=== PATIENT | female | born 1975 | race Asian ===

== ENCOUNTER 2017-10-21 16:31 | Inpatient (IN) | payer OTHER ==
[~2017-10-21] VITALS: Ht 152.4 cm; Wt 45.8 kg
[~2017-10-21 16:31] MED LIST: PRENTAB26 PO
--- NOTE | 2017-10-21 18:10 | EMERGENCY ROOM VISIT NOTE ---
History Report prepared by Jessi: Jhon Finch Under the Supervision of: Dr. Kennedy Chow M.D. First contact with patient: 17:55 Chief Complaint: FEVER Stated Complaint: PAIN IN THE BREAST SURGERY AREA, HAS FEVER History of Present Illness The patient is a 42 year old female with a past medical history of breast cancer and mastectomy who presents to the ED with a cc of constant right sided breast pain over the last few days accompanied with a fever that started today of 102 degrees. The patient notes that she had a mastectomy on October 10 at [place]. The patient also stated that she is not on medications for the cancer. Positive for erythema, cough, and headache. Negative for drainage from the incision site, dysuria, HTN, and DM. Source of History: patient Onset: Last few days Position: chest (right) Timing: constant Associated Symptoms: + fevers, + headache, + cough, No urinary symptoms Review of Systems See HPI for pertinent positives and negatives. A total of ten systems were reviewed and were otherwise negative. Family History Patient reports no known family medical history. Social History Smoking Status: Current Every Day Smoker Marital Status: Housing Status: lives with significant other Current/Historical Medications Scheduled PRN Diazepam (Diazepam), 5 MG PO Q6 PRN for PRN Oxycodone Ir (Roxicodone Ir), 5 MG PO Q4 PRN for Pain Allergies Coded Allergies: No Known Allergies (Verified , 10/21/17) Physical Exam Vital Signs Date Time Temp Pulse Resp B/P (MAP) Pulse Ox O2 Delivery O2 Flow Rate FiO2 10/21/17 21:31 98 16 89/57 97 Room Air 10/21/17 16:53 37.2 107 18 99/61 99 Room Air Physical Exam GENERAL: Awake, alert, well-appearing, NAD HENT: Normocephalic, atraumatic. EYES: Normal conjunctiva. Sclera non-icteric. PERRL. No anisocoria. NECK: Supple. No nuchal rigidity. FROM. RESPIRATORY: CTAB, no rhonchi, wheezing, crackles CARDIAC: Tachycardic, regular rhythm, no MRG ABDOMEN: Soft, NTND, BS+ MSK: No chest wall TTP, no LE edema NEURO: GCS 15, CN 2-12 intact, moves all 4s on command SKIN: No rash or jaundice noted. Two 8cm well healing incisions with sutures bilaterally across chest. No purulence or fluctuance, 4x4cm area of erythema and TTP, associated calor, no fluctuance. Recent drain site appears CDI Medical Decision & Procedures ER Provider Diagnostic Interpretation: Radiology results as stated below per my review and radiologist interpretation: CHEST ONE VIEW PORTABLE CLINICAL HISTORY: Fever, h/o breast reconstruction and mastectomy. COMPARISON STUDY: Chest radiograph September 06, 2011. FINDINGS: Lung volumes are mildly diminished. There is no pneumothorax or pleural effusion. There is no consolidation to suggest pneumonia. Cardiac size is normal. Mediastinal contours are normal. There is no evidence for pulmonary edema. IMPRESSION: 1. No acute cardiopulmonary findings. 2. Mildly diminished lung volumes. Electronically signed by: Jonathan Nieves M.D. 10/21/2017 7:00 PM Dictated Date/Time: 10/21/2017 6:59 PM RIGHT BREAST ULTRASOUND CLINICAL HISTORY: Recent post op breast recon R sided cellulitis, r/o abscess. COMPARISON STUDY: MRI of the breasts September 02, 2017. TECHNIQUE: Sonography of the right breast was performed. FINDINGS: A right breast implant is noted. There is diffuse edema within the right breast which is within normal limits in the early postoperative setting. In addition, note is made of an elongated 4.9 x 0.5 cm pocket of fluid within the right breast at the 7:00 position. This is nonspecific. IMPRESSION: 1. 4.9 x 0.5 cm elongated pocket of fluid within the right breast at the 7:00 position. Sterility cannot be assessed by ultrasound however the appearance is not strongly suggestive of an abscess. This may reflect a seroma, resolving hematoma or less likely abscess. 2. Right breast implant in place. Electronically signed by: Jonathan Nieves M.D. 10/21/2017 8:09 PM Dictated Date/Time: 10/21/2017 8:04 PM Laboratory Results Test 10/21/17 18:50 10/21/17 18:53 10/21/17 19:15 Venous Blood pH 7.38 (7.36-7.41) Venous Blood Partial Pressure CO2 46 mmHg (38.0-50.0) Venous Blood Partial Pressure O2 25 mmHg Venous Blood HCO3 27 mmol/L Venous Blood Oxygen Saturation < 60.0 % Venous Blood Base Excess 1.0 mEq/L Lactic Acid Level 1.6 mmol/L (0.4-2.0) Chemistry Specimen Hemolysis Urine Color YELLOW Urine Appearance CLEAR (CLEAR) Urine pH 7.0 (4.5-7.5) Urine Specific [place] 1.006 (1.000-1.030) Urine Protein NEG (NEG) Urine Glucose (UA) 1+ (NEG) Urine Ketones NEG (NEG) Urine Occult Blood 2+ (NEG) Urine Nitrite NEG (NEG) Urine Bilirubin NEG (NEG) Urine Urobilinogen NEG (NEG) Urine Leukocyte Esterase NEG (NEG) Urine WBC (Auto) /hpf (0-5) Urine RBC (Auto) /hpf (0-4) Urine Hyaline Casts (Auto) /lpf (0-5) Urine Epithelial Cells (Auto) /lpf (0-5) Urine Bacteria (Auto) (NEG) Urine RBC 5-10 /hpf (0-4) Urine WBC 0 /hpf (0-5) Urine Epithelial Cells 5-10 /lpf (0-5) Urine Bacteria NEG (NEG) Urine Test NEG (NEG) Laboratory results reviewed by me Medications Administered Medications (Trade) Dose Ordered Sig/Reinier Route Start Time Stop Time Status Last Admin Dose Admin Ampicillin Sodium/ Sulbactam Sodium 3000 mg/Sodium Chloride 108 ml @ 200 mls/hr ONE ONCE IV 10/21/17 18:15 10/21/17 18:47 DC 10/21/17 19:10 200 MLS/HR Sodium Chloride 1,000 ml @ 999 mls/hr Q1H1M STAT IV 10/21/17 18:15 10/21/17 19:15 DC 10/21/17 19:10 999 MLS/HR Ketorolac Tromethamine (Toradol Inj) 30 mg NOW STAT IV 10/21/17 18:15 10/21/17 18:20 DC 10/21/17 19:10 30 MG Acetaminophen (Tylenol Tab) 650 mg NOW STAT PO 10/21/17 18:15 10/21/17 18:20 DC 10/21/17 19:11 650 MG Vancomycin HCl 1000 mg/Sodium Chloride 270 ml @ 125 mls/hr NOW STAT IV 10/21/17 21:07 10/21/17 23:16 DC 10/21/17 21:30 125 MLS/HR Sodium Chloride 1,000 ml @ 999 mls/hr Q1H1M STAT IV 10/21/17 21:19 10/21/17 22:19 DC 10/21/17 21:39 999 MLS/HR Acetaminophen (Tylenol Tab) 650 mg Q4H PRN PO 10/21/17 21:45 11/20/17 21:44 10/22/17 12:28 650 MG ED Course 1807: The patient was evaluated in room B8. A complete history and physical exam was performed. 1916: I talked to Dr. Camilo Boone Resident about the patients condition. 2029: I talked to Dr. Pinon [facility] about the mastectomy. He said to put the patient on 24 hours of IV abx followed by oral abx. If the redness continues than to transfer her to [place]. 2039: I talked to Dr. Camilo Boone Resident about the patients condition and disposition. 2045: I spoke with the patient and updated her on the situation. Medical Decision Nursing notes reviewed. Ancillary studies and prior records reviewed. Differential diagnosis: Etiologies such as cellulitis, abscess, MRSA infection, DVT, necrotizing fasciitis, dermatitis, drug eruption, as well as others were entertained.. Patient was seen and evaluated the bedside. The patient is a has a known history of breast CA status post bilateral mastectomy and breast reconstruction. The patient is not receiving any oral or IV chemotherapy at this time. The patient recently had a postop check and did have what sounds to be a drain that was removed on Tuesday. The patient did have an associated fever with a T-max of 102 and associated redness over the right and central chest. No purulent drainage per patient were noted on exam. Patient did have blood work, blood and urine cultures, urinalysis, urine test, chest x-ray, and ultrasound of the right chest to rule out abscess or fluid collection. The patient was also given antipyretics and started on Unasyn. Patient did have an elevated white blood cell count of greater than 26,000. The patient did not have any fever while here. Patient had normal VBG and lactate. Patient's ultrasound did show a fluid collection but this was less likely to be abscess. I did speak with the on-call plastic surgeon at [facility] who stated that the patient would benefit from IV antibiotics but if the patient had any clinical deterioration, worsening, or expanding redness even with IV antibiotics that would accept her as a transfer. I believe this is suitable at this time. Upon reassessment of the patient patient is feeling improved. The patient's erythema was marked and dated with time and date with a skin marker. I did speak with the on-call hospitalist who agreed to further evaluate treat the patient. Did add vancomycin as coverage given the patient's recent intraoperative course. Patient was admitted to the medicine service. Medication Reconcilliation Current Medication List: was personally reviewed by me Blood Pressure Screening Patient's blood pressure: Low blood pressure Blood pressure disposition: Referred to PCP Consults Time Called: 1916 Consulting Physician: Dr. Camilo Boone Resident Returned Call: 1916 Discussed the patient's case with Dr. Camilo Boone Resident. The patient will be evaluated for further treatment and disposition. Additional Consults: Time Called: 2024 Consulted Physician: Dr. Pinon [facility] Returned Call: 2029 Additional Comments: Discussed the patient's case with Dr. Pinon [facility]. He said to put the patient on 24 hours of IV abx followed by oral abx. If the redness continues than to transfer her to [place]. Time Called: 2045 Consulted Physician: Dr. Camilo Boone Resident Returned Call: 2045 Additional Comments: Discussed the patient's case Dr. Camilo Sinclair. The patient will be evaluated for further treatment and disposition. Impression Primary Impression: Cellulitis of chest wall Additional Impressions: Anemia Fever Scribe Attestation The scribe's documentation has been prepared under my direction and personally reviewed by me in its entirety. I confirm that the note above accurately reflects all work, treatment, procedures, and medical decision making performed by me. Departure Information Dispostion Being Evaluated By Hospitalist Referrals Rangel Paul M.D. (PCP) Forms HOME CARE DOCUMENTATION FORM, IMPORTANT VISIT INFORMATION Patient Instructions My [facility] Health Problem Qualifiers Additional Impressions: Anemia Anemia type: unspecified type Qualified Codes: D64.9 - Anemia, unspecified Fever Fever type: unspecified Qualified Codes: R50.9 - Fever, unspecified
[2017-10-21] MEDS ORDERED: KETOROLAC TROMETHAMINE 30 MG/ML VIAL IV STA (18:15)
[2017-10-21] MEDS ORDERED: ACETAMINOPHEN 325 MG TAB PO STA (18:15)
[2017-10-21] MEDS ORDERED: AMPICILLIN/SULBACTAM SOD INJ 3,000 MG in SODIUM CHLORIDE 0.9% 100ML 100 ML IV ONE (18:15)
[2017-10-21] MEDS ORDERED: SODIUM CHLORIDE 0.9% 1000ML 1,000 ML IV STA ×2 (18:15→21:19)
[2017-10-21] MEDS ORDERED: OXYC-90 PO (18:24)
[2017-10-21] MEDS ORDERED: VLM5CL PO (18:24)
--- NOTE | 2017-10-21 19:01 | DIAGNOSTIC IMAGING REPORT ---
CHEST ONE VIEW PORTABLE CLINICAL HISTORY: Fever, h/o breast reconstruction and mastectomy. COMPARISON STUDY: Chest radiograph September 06, 2011. FINDINGS: Lung volumes are mildly diminished. There is no pneumothorax or pleural effusion. There is no consolidation to suggest pneumonia. Cardiac size is normal. Mediastinal contours are normal. There is no evidence for pulmonary edema. IMPRESSION: 1. No acute cardiopulmonary findings. 2. Mildly diminished lung volumes. Electronically signed by: Jonathan Nieves M.D. 10/21/2017 7:00 PM Dictated Date/Time: 10/21/2017 6:59 PM
[2017-10-21 19:08] LABS: HEMATOCRIT 30.7 % (37-47); HEMOGLOBIN 10.2 g/dL (12.0-16.0); MEAN CELL VOLUME 95.9 fL (80-100); MEAN CORPUSCULAR HEMOGLOBIN 31.9 pg (25-34); MEAN CORPUSCULAR HGB CONC 33.2 g/dl (32-36); PLATELET COUNT 345 K/uL (130-400); RED CELL DISTRIBUTION WIDTH CV 13.2 % (11.5-14.5); RED CELL DISTRIBUTION WIDTH SD 46.4 fL (36.4-46.3); WHITE BLOOD COUNT 25.64 K/uL (4.8-10.8)
[2017-10-21 19:31] LABS: BASO % 0.1 %; BASO ABS # 0.02 K/uL (0-0.2); EOS % 0.1 %; EOS ABS # 0.03 K/uL (0-0.5); IG# 0.15 K/uL (0.00-0.02); LYMPH % 4.1 %; LYMPH ABS # 1.04 K/uL (1.2-3.4); MONO % 4.3 %; MONO ABS # 1.11 K/uL (0.11-0.59); NEUT % 90.8 %; NEUT ABS # 23.29 K/uL (1.4-6.5)
[2017-10-21 19:32] LABS: CALCIUM 8.9 mg/dl (8.5-10.1); CREATININE 0.66 mg/dl (0.60-1.20); POTASSIUM 3.9 mmol/L (3.5-5.1)
--- NOTE | 2017-10-21 20:10 | DIAGNOSTIC IMAGING REPORT ---
RIGHT BREAST ULTRASOUND CLINICAL HISTORY: Recent post op breast recon R sided cellulitis, r/o abscess. COMPARISON STUDY: MRI of the breasts September 02, 2017. TECHNIQUE: Sonography of the right breast was performed. FINDINGS: A right breast implant is noted. There is diffuse edema within the right breast which is within normal limits in the early postoperative setting. In addition, note is made of an elongated 4.9 x 0.5 cm pocket of fluid within the right breast at the 7:00 position. This is nonspecific. IMPRESSION: 1. 4.9 x 0.5 cm elongated pocket of fluid within the right breast at the 7:00 position. Sterility cannot be assessed by ultrasound however the appearance is not strongly suggestive of an abscess. This may reflect a seroma, resolving hematoma or less likely abscess. 2. Right breast implant in place. Electronically signed by: Jonathan Nieves M.D. 10/21/2017 8:09 PM Dictated Date/Time: 10/21/2017 8:04 PM
[2017-10-21] MEDS ORDERED: VANCOMYCIN IV 1,000 MG in SODIUM CHLORIDE 0.9% 250ML 250 ML IV STA (21:07)
[2017-10-21] MEDS ORDERED: VANCOMYCIN CONSULT ACTIVE PRN ×2 (21:15→22:00)
--- NOTE | 2017-10-21 21:48 | History and Physical ---
History & Physical Date & Time of Service: Oct 21, 2017 at 21:48 Chief Complaint: Pain In The Breast Surgery Area, Has Fever Primary Care Physician: Rangel Paul M.D. History of Present Illness Source: patient, family, hospital records The patient is a 42-year-old female with a past medical history of breast cancer and recent mastectomy at [facility] on October 10, who presents to the emergency department with complaint of right sided breast pain worsening over the last few days with a fever that began today with a max of 102 F. She has not yet met with an oncologist to discuss chemotherapy. Past Medical/Surgical History Medical Problems: (1) Breast CA (2) LABOR (3) Vaginal bleeding during , antepartum Surgical Problems: (1) Hx of mastectomy Family History Patient reports no known family medical history. Social History Smoking Status: Current Every Day Smoker Smokeless Tobacco Use: No Alcohol Use: none Marital Status: Housing status: lives with family Immunizations History of Influenza Vaccine: No History of Tetanus Vaccine?: Unknown History of Pneumococcal: Unknown History of Hepatitis B Vaccine: Unknown Allergies Coded Allergies: No Known Allergies (Verified , 10/21/17) Home Medications Scheduled PRN Diazepam (Diazepam), 5 MG PO Q6 PRN for PRN Oxycodone Ir (Roxicodone Ir), 5 MG PO Q4 PRN for Pain Review of Systems The patient denies chest pain, palpitations, shortness of breath, dyspnea on exertion, cough, lower extremity swelling, sore throat, fevers, chills, sweats, weight change, nausea, vomiting, diarrhea, constipation, abdominal pain, pelvic pain, blood in urine or stool, dysuria, urinary frequency or urgency, lightheadedness , dizziness, headache, memory loss, loss of consciousness, abnormal bruising or bleeding, imbalance, focal or generalized weakness, numbness or tingling in arms or legs, generalized arthralgias or myalgias, back or neck pain, or night sweats. The review of systems is otherwise negative other than for that already noted above, and at least 10 systems have been reviewed. Physical Exam Vital Signs Date Time Temp Pulse Resp B/P (MAP) Pulse Ox O2 Delivery O2 Flow Rate FiO2 10/21/17 21:31 98 16 89/57 97 Room Air 10/21/17 16:53 37.2 107 18 99/61 99 Room Air The patient is awake, alert and oriented 3, well developed and well nourished, normocephalic and atraumatic, lying in bed and in no acute distress. HEENT--PERRL, EOMI, mucous membranes and oropharynx normal. Neck--supple. No JVD. No bruits. Thyroid normal, trachea midline, no adenopathy. Heart--normal S1 and S2. No murmurs, rubs or gallops. Lungs--clear bilaterally, no respiratory distress, no accessory muscle use. Abdomen--normal bowel sounds and soft. Nontender. Nondistended, no hernias or masses, no organomegaly. Extremities--no cyanosis or clubbing. No edema. There are good distal pulses b/ l. Dermatologic--mild erythema and warmth extending across the chest wall from right to toward left breast. Neurologic--cranial nerves II through XII grossly intact. Rheumatologic--normal range of motion. Psychiatric--normal affect. Diagnostics Laboratory Results Results Past 24 Hours Test 10/21/17 18:50 10/21/17 18:53 10/21/17 19:15 Range/Units Venous Blood pH 7.38 7.36-7.41 Venous Blood Partial Pressure CO2 46 38.0-50.0 mmHg Venous Blood Partial Pressure O2 25 mmHg Venous Blood HCO3 27 mmol/L Venous Blood Oxygen Saturation < 60.0 % Venous Blood Base Excess 1.0 mEq/L White Blood Count 25.64 4.8-10.8 K/uL Red Blood Count 3.20 4.2-5.4 M/uL Hemoglobin 10.2 12.0-16.0 g/dL Hematocrit 30.7 37-47 % Mean Corpuscular Volume 95.9 80-100 fL Mean Corpuscular Hemoglobin 31.9 25-34 pg Mean Corpuscular Hemoglobin Concent 33.2 32-36 g/dl Platelet Count 345 130-400 K/uL Mean Platelet Volume 9.0 7.4-10.4 fL Neutrophils (%) (Auto) 90.8 % Lymphocytes (%) (Auto) 4.1 % Monocytes (%) (Auto) 4.3 % Eosinophils (%) (Auto) 0.1 % Basophils (%) (Auto) 0.1 % Neutrophils # (Auto) 23.29 1.4-6.5 K/uL Lymphocytes # (Auto) 1.04 1.2-3.4 K/uL Monocytes # (Auto) 1.11 0.11-0.59 K/uL Eosinophils # (Auto) 0.03 0-0.5 K/uL Basophils # (Auto) 0.02 0-0.2 K/uL RDW Standard Deviation 46.4 36.4-46.3 fL RDW Coefficient of Variation 13.2 11.5-14.5 % Immature Granulocyte % (Auto) 0.6 % Immature Granulocyte # (Auto) 0.15 0.00-0.02 K/uL Sodium Level 134 136-145 mmol/L Potassium Level 3.9 3.5-5.1 mmol/L Chloride Level 103 98-107 mmol/L Carbon Dioxide Level 24 21-32 mmol/L Anion Gap 7.0 3-11 mmol/L Blood Urea Nitrogen 6 7-18 mg/dl Creatinine 0.66 0.60-1.20 mg/dl Est Creatinine Clear Calc Drug Dose 81.4 ml/min Estimated GFR () 128.1 Estimated GFR (Non- 110.5 BUN/Creatinine Ratio 8.9 10-20 Random Glucose 116 70-99 mg/dl Lactic Acid Level 1.6 0.4-2.0 mmol/L Calcium Level 8.9 8.5-10.1 mg/dl Chemistry Specimen Hemolysis Urine Color YELLOW Urine Appearance CLEAR CLEAR Urine pH 7.0 4.5-7.5 Urine Specific [place] 1.006 1.000-1.030 Urine Protein NEG NEG Urine Glucose (UA) 1+ NEG Urine Ketones NEG NEG Urine Occult Blood 2+ NEG Urine Nitrite NEG NEG Urine Bilirubin NEG NEG Urine Urobilinogen NEG NEG Urine Leukocyte Esterase NEG NEG Urine WBC (Auto) 0-5 /hpf Urine RBC (Auto) 0-4 /hpf Urine Hyaline Casts (Auto) 0-5 /lpf Urine Epithelial Cells (Auto) 0-5 /lpf Urine Bacteria (Auto) NEG Urine RBC 5-10 0-4 /hpf Urine WBC 0 0-5 /hpf Urine Epithelial Cells 5-10 0-5 /lpf Urine Bacteria NEG NEG Urine Test NEG NEG Microbiology Results 10/21/17 Blood Culture, Received Pending 10/21/17 Blood Culture, Received Pending Diagnostic Radiology Patient Name: VINCENT FRANCO Unit Number: [id number] Dictated: 10/21/172003 Transcribed: 10/21/172003 JA Printed Date/Time: [~ rep prt dt]/[~ rep prt tm] [~ rep ct labl] - [~ rep ct ivnm] [facility] [place] [address] Dictated: 10/21/172003 Transcribed: 10/21/172003 JA Printed Date/Time: [~ rep prt dt]/[~ rep prt tm] [~ rep ct labl] - [~ rep ct ivnm] [~ rep ct add3]] RIGHT BREAST ULTRASOUND CLINICAL HISTORY: Recent post op breast recon R sided cellulitis, r/o abscess. COMPARISON STUDY: MRI of the breasts September 02, 2017. TECHNIQUE: Sonography of the right breast was performed. FINDINGS: A right breast implant is noted. There is diffuse edema within the right breast which is within normal limits in the early postoperative setting. In addition, note is made of an elongated 4.9 x 0.5 cm pocket of fluid within the right breast at the 7:00 position. This is nonspecific. IMPRESSION: 1. 4.9 x 0.5 cm elongated pocket of fluid within the right breast at the 7:00 position. Sterility cannot be assessed by ultrasound however the appearance is not strongly suggestive of an abscess. This may reflect a seroma, resolving hematoma or less likely abscess. 2. Right breast implant in place. Electronically signed by: Jonathan Nieves M.D. 10/21/2017 8:09 PM Dictated Date/Time: 10/21/2017 8:04 PM The status of this report is Signed. Draft = Not yet reviewed or approved by Radiologist. Signed = Reviewed and approved by Radiologist. <AttendingPhy></AttendingPhy> <FamilyPhy>Rangel Paul M.D.</FamilyPhy> <PrimaryPhy >Rangel Paul M.D.</PrimaryPhy> <UnitNumber>[id number]</UnitNumber> <VisitNumber> [id number]</VisitNumber> <PatientName>VINCENT FRANCO</PatientName> <DateOfBirth></DateOfBirth> <Location>C.EDB</Location> <ServiceDate>08/10/18</ ServiceDate> <MNE>ESINDI</MNE> <OrderingPhy>Kennedy Chow M.D.</OrderingPhy> < OrderingPhyMNE>f rep ord dr archer</OrderingPhyMNE> <DictatingPhyMNE>f rep dict dr archer</DictatingPhyMNE> <CCListMNE>f rep ct mne</CCListMNE> <AdmittingPhyMNE>f pt admit dr archer</AdmittingPhyMNE> <AttendingPhyMNE>f pt attend dr archer</ AttendingPhyMNE> <ConsultingPhyMNE>f pt consult dr archer</ConsultingPhyMNE> <FamilyPhyMNE>f pt fam dr archer</FamilyPhyMNE> <OtherPhyMNE>f pt other dr archer</OtherPhyMNE> < PrimaryPhyMNE>f pt prim care dr archer</PrimaryPhyMNE> <ReferringPhyMNE>f pt referring dr archer</ReferringPhyMNE> Patient Name: VINCENT FRANCO Unit Number: [id number] Dictated: 10/21/171858 Transcribed: 10/21/171858 JA Printed Date/Time: [~ rep prt dt]/[~ rep prt tm] [~ rep ct labl] - [~ rep ct ivnm] [facility] Radiology Department [place] [id number] Dictated: 10/21/171858 Transcribed: 10/21/171858 JA Printed Date/Time: [~ rep prt dt]/[~ rep prt tm] [~ rep ct labl] - [~ rep ct ivnm] CHEST ONE VIEW PORTABLE CLINICAL HISTORY: Fever, h/o breast reconstruction and mastectomy. COMPARISON STUDY: Chest radiograph September 06, 2011. FINDINGS: Lung volumes are mildly diminished. There is no pneumothorax or pleural effusion. There is no consolidation to suggest pneumonia. Cardiac size is normal. Mediastinal contours are normal. There is no evidence for pulmonary edema. IMPRESSION: 1. No acute cardiopulmonary findings. 2. Mildly diminished lung volumes. Electronically signed by: Jonathan Nieves M.D. 10/21/2017 7:00 PM Dictated Date/Time: 10/21/2017 6:59 PM The status of this report is Signed. Draft = Not yet reviewed or approved by Radiologist. Signed = Reviewed and approved by Radiologist. <AttendingPhy></AttendingPhy> <FamilyPhy>Rangel Paul M.D.</FamilyPhy> <PrimaryPhy >Rangel Paul M.D.</PrimaryPhy> <UnitNumber>[id number]</UnitNumber> <VisitNumber> [id number]</VisitNumber> <PatientName>VINCENT FRANCO</PatientName> <DateOfBirth></DateOfBirth> <Location>C.EDB</Location> <ServiceDate>10/21/17</ ServiceDate> <MNE>ESINDI</MNE> <OrderingPhy>Kennedy Chow M.D.</OrderingPhy> < OrderingPhyMNE>f rep ord dr archer</OrderingPhyMNE> <DictatingPhyMNE>f rep dict dr archer</DictatingPhyMNE> <CCListMNE>f rep ct mne</CCListMNE> <AdmittingPhyMNE>f pt admit dr archer</AdmittingPhyMNE> <AttendingPhyMNE>f pt attend dr archer</ AttendingPhyMNE> <ConsultingPhyMNE>f pt consult dr archer</ConsultingPhyMNE> <FamilyPhyMNE>f pt fam dr archer</FamilyPhyMNE> <OtherPhyMNE>f pt other dr archer</OtherPhyMNE> < PrimaryPhyMNE>f pt prim care dr archer</PrimaryPhyMNE> <ReferringPhyMNE>f pt referring dr archer</ReferringPhyMNE> Impression Assessment and Plan Cellulitis of chest wall/status post mastectomy [facility] 10/10/17-- Dr. Chow from the emergency department discussed case with Dr. Workman, plastic surgeon at [place], who felt patient could be kept at this hospital for IV antibiotics. 4.9 x 0.5 cm elongated pocket of fluid within the right breast at 7 o'clock position, suggestive of seroma, resolving hematoma or less likely abscess. Place on vancomycin IV per pharmacokinetic monitoring and Zosyn IV. Follow external markings of advanced edge of cellulitis for clinical improvement. Keep in contact with plastic surgeon at [place], who is willing to accept the patient in transfer should she not respond to therapy. Breast cancer recent diagnosis-- Consult oncology, as she has not yet established with the service. Tobacco use disorder-- Counseling regarding cessation. Advanced Directives Existing Advance Directive: No Existing Living Will: No Existing Power of Typists Supervisor: No Resuscitation Status VTE Prophylaxis Will order VTE Prophylaxis: Yes Social Service Consult None Apply
[2017-10-21] MEDS ORDERED: ACETAMINOPHEN IV 100 ML IV PRN (22:00)
[2017-10-21] MEDS ORDERED: PIPERACILL/TAZOBAC CONSULT ACTIVE PRN (22:00)
[2017-10-21] MEDS ORDERED: ONDANSETRON INJ 2 MG/ML 2 ML VIAL IV PRN (22:00)
[2017-10-22] VITALS (9 sets, daily range): BP systolic 89–101; BP diastolic 58–69; PULSE 90–97; TEMP 36.7–37.7; O2SAT 95–100; Ht 152.4 cm; Wt 45.8 kg
[2017-10-22] MEDS ORDERED: PIPERACILL/TAZOBAC IV 3.375 GM in D5W 100 ML IV ONE ×2
[2017-10-22] MEDS ORDERED: PIPERACILL/TAZOBAC IV 3.375 GM in DEXTROSE 5% 100ML 100 ML IV SCH ×2
[2017-10-22] MEDS: NSS + 20MEQ KCL 1000ML 1,000 ML IV SCH ×3 (00:24→19:40)
[2017-10-22] MEDS: ACETAMINOPHEN 325 MG TAB PO PRN ×3 (04:38→21:05)
[2017-10-22] MEDS: VANCOMYCIN IV 500 MG in SODIUM CHLORIDE 0.9% 250ML 250 ML IV SCH ×2 (05:35→14:34)
[2017-10-22 05:49] LABS: BASO % 0.1 %; BASO ABS # 0.01 K/uL (0-0.2); EOS % 0.3 %; EOS ABS # 0.06 K/uL (0-0.5); HEMATOCRIT 23.9 % (37-47); HEMOGLOBIN 8.1 g/dL (12.0-16.0); IG# 0.06 K/uL (0.00-0.02); LYMPH % 3.1 %; LYMPH ABS # 0.61 K/uL (1.2-3.4); MEAN CELL VOLUME 96.4 fL (80-100); MEAN CORPUSCULAR HEMOGLOBIN 32.7 pg (25-34); MEAN CORPUSCULAR HGB CONC 33.9 g/dl (32-36); MEAN PLATELET VOLUME 8.3 fL (7.4-10.4); MONO % 3.3 %; MONO ABS # 0.65 K/uL (0.11-0.59); NEUT % 92.9 %; NEUT ABS # 18.51 K/uL (1.4-6.5); PLATELET COUNT 252 K/uL (130-400); RED CELL DISTRIBUTION WIDTH CV 13.3 % (11.5-14.5); RED CELL DISTRIBUTION WIDTH SD 46.9 fL (36.4-46.3)
[2017-10-22] MEDS: PIPERACILL/TAZOBAC IV 3.375 GM in D5W 100ML IV SCH ×3 (06:00→22:25)
[2017-10-22 06:24] LABS: CALCIUM 7.6 mg/dl (8.5-10.1); CREATININE 0.47 mg/dl (0.60-1.20); POTASSIUM 3.7 mmol/L (3.5-5.1)
[2017-10-22] MEDS ORDERED: VANCOMYCIN IV 1,000 MG in SODIUM CHLORIDE 0.9% 250ML 250 ML IV SCH (09:00)
[2017-10-22] MEDS ORDERED: OXYCODONE HCL IR 5 MG TAB (IMMEDIATE RELEASE) PO STA (13:18)
[2017-10-22] MEDS ORDERED: OXYCODONE HCL IR 5 MG TAB (IMMEDIATE RELEASE) PO PRN (13:30)
--- NOTE | 2017-10-22 14:01 | Discharge Instructions ---
Discharge Instructions Date of Service Oct 22, 2017. Admission Reason for Admission: Cellulitis Of Chest Wall, Hx Of Mastectomy Discharge Discharge Diagnosis / Problem: Abscess of Right Breast Discharge Goals Goal(s): Prevent Disease Progression Activity Recommendations Activity Limitations: per Instructions/Follow-up section Will transfer via EMS to [facility]; upon transfer follow activity recommendations from [facility] clinical team. . Instructions / Follow-Up Instructions / Follow-Up Transferring to Dr. Jose Pinon Plastic Surgery at [facility]. Please follow up with your Primary Care Provider after discharge from [facility]. To Admitting Physician: Garo Dickson is a 42 year old female with a past medical history of breast cancer and recent right breast mastectomy with implant at [facility] on October 10, who sought medical care at [facility] ED on 10/21/17 for complaints of worsening right sided breast pain for the past 2 days and a home measured fever max of 102 F on same day (10/21). She has not yet met with an oncologist to discuss chemotherapy. Work up in the ED was significant for a WBC of 25.64 and a Right breast U/S finding of 1) 4.9 x 0.5cm elongated pocket of fluid within the right breast at the 7 o'clock position. Sterility cannot be be assessed by ultrasound however the appearance is not strongly suggestive of an abscess. This may reflect a seroma, resolving hematoma or less likely abscess. 2) Right breast implant in place. She also had a CXR in the ED with No acute cardiopulmonary findings and mildly diminished lung volumes. The [facility] ED physician discussed care with [facility] who performed surgery. Recommendation by [employer] was for hospital IV antibiotics for 24 hours followed by PO; also if she did not respond to therapy to transfer to [facility]. Patient was placed on Vancomycin IV per pharmacokinetic monitoring and Zosyn IV. She received Toradol for pain. Hospital course also included following external markings of advanced edge of cellulitis for clinical improvement. The patient did not have any acute events overnight. She remained afebrile and was receiving Tylenol PO. Repeat labs in the morning was significant for a WBC 19.90 and a hemoglobin of 8.1, which was down from 10.2 night prior and thought to be dilutional. Patient did not complain of any hematuria, bleeding gums, black/bloody stools, dizziness/lightheadedness. She had no new chest pain or shortness of breath. However, she states that her symptoms of breast pain were not improving and were persistent. On exam, her right breast was examined and she was exquisitely tender on palpation to the lower outer quadrant; it also had warmth but surgical wound did not have any drainage and was intact. She stated that she had her surgical drain pulled earlier this week on Tuesday (2 days prior to being seen here in ED). The decision was made to transfer patient to [facility] for management under clinical team who performed procedure. Also, incase surgical intervention is needed during course of her illness, she would be in a more appropriate location at [facility] as to not delay treatment, again if needed. Transfer was discussed with patient and who agreed with treatment plan. Dr. Pinon was contacted for transfer by PGY1 Declan Rosenbaum D.O. [facility] was at capacity with no available inpatient beds. As to not have the patient wait in the [facility] ER, patient was to be placed on Wait List for a bed and will remain here at [facility] Oncology floor for continued IV antibiotics. Condition could also be re-evaluated if improves prior to bed placement. However, with patients current symptoms it is likely she will follow through with Transfer to [facility]. Blood cultures are still pending. Will continue IV antibiotics during transport to [facility]. Current Hospital Diet Patient's current hospital diet: Regular Diet Discharge Diet Recommended Diet: Regular Diet Fluid Restriction: None Pending Studies Studies pending at discharge: yes List of pending studies: Blood Cultres x2 pending Laboratory Results 10/22/17 05:34 Red Blood Count 2.48, Mean Corpuscular Volume 96.4, Mean Corpuscular Hemoglobin 32.7, Mean Corpuscular Hemoglobin Concent 33.9, Mean Platelet Volume 8.3, Neutrophils (%) (Auto) 92.9, Lymphocytes (%) (Auto) 3.1, Monocytes (%) (Auto) 3.3, Eosinophils (%) (Auto) 0.3, Basophils (%) (Auto) 0.1, Neutrophils # (Auto) 18.51, Lymphocytes # (Auto) 0.61, Monocytes # (Auto) 0.65, Eosinophils # (Auto) 0.06, Basophils # (Auto) 0.01 10/22/17 05:34 Test 10/21/17 18:50 10/21/17 18:53 10/21/17 19:15 10/22/17 05:34 Venous Blood pH 7.38 (7.36-7.41) Venous Blood Partial Pressure CO2 46 mmHg (38.0-50.0) Venous Blood Partial Pressure O2 25 mmHg Venous Blood HCO3 27 mmol/L Venous Blood Oxygen Saturation < 60.0 % Venous Blood Base Excess 1.0 mEq/L Lactic Acid Level 1.6 mmol/L (0.4-2.0) Chemistry Specimen Hemolysis Urine Color YELLOW Urine Appearance CLEAR (CLEAR) Urine pH 7.0 (4.5-7.5) Urine Specific Sullivan 1.006 (1.000-1.030) Urine Protein NEG (NEG) Urine Glucose (UA) 1+ (NEG) Urine Ketones NEG (NEG) Urine Occult Blood 2+ (NEG) Urine Nitrite NEG (NEG) Urine Bilirubin NEG (NEG) Urine Urobilinogen NEG (NEG) Urine Leukocyte Esterase NEG (NEG) Urine WBC (Auto) /hpf (0-5) Urine RBC (Auto) /hpf (0-4) Urine Hyaline Casts (Auto) /lpf (0-5) Urine Epithelial Cells (Auto) /lpf (0-5) Urine Bacteria (Auto) (NEG) Urine RBC 5-10 /hpf (0-4) Urine WBC 0 /hpf (0-5) Urine Epithelial Cells 5-10 /lpf (0-5) Urine Bacteria NEG (NEG) Urine Test NEG (NEG) White Blood Count 19.90 K/uL (4.8-10.8) Red Blood Count 2.48 M/uL (4.2-5.4) Hemoglobin 8.1 g/dL (12.0-16.0) Hematocrit 23.9 % (37-47) Mean Corpuscular Volume 96.4 fL (80-100) Mean Corpuscular Hemoglobin 32.7 pg (25-34) Mean Corpuscular Hemoglobin Concent 33.9 g/dl (32-36) Platelet Count 252 K/uL (130-400) Mean Platelet Volume 8.3 fL (7.4-10.4) Neutrophils (%) (Auto) 92.9 % Lymphocytes (%) (Auto) 3.1 % Monocytes (%) (Auto) 3.3 % Eosinophils (%) (Auto) 0.3 % Basophils (%) (Auto) 0.1 % Neutrophils # (Auto) 18.51 K/uL (1.4-6.5) Lymphocytes # (Auto) 0.61 K/uL (1.2-3.4) Monocytes # (Auto) 0.65 K/uL (0.11-0.59) Eosinophils # (Auto) 0.06 K/uL (0-0.5) Basophils # (Auto) 0.01 K/uL (0-0.2) RDW Standard Deviation 46.9 fL (36.4-46.3) RDW Coefficient of Variation 13.3 % (11.5-14.5) Immature Granulocyte % (Auto) 0.3 % Immature Granulocyte # (Auto) 0.06 K/uL (0.00-0.02) Basophilic Stippling 1+ Anion Gap 6.0 mmol/L (3-11) Est Creatinine Clear Calc Drug Dose 114.3 ml/min Estimated GFR () 143.2 Estimated GFR (Non- 123.6 BUN/Creatinine Ratio 15.9 (10-20) Calcium Level 7.6 mg/dl (8.5-10.1) Magnesium Level 2.0 mg/dl (1.8-2.4) Medical Emergencies . Who to Call and When: Medical Emergencies: If at any time you feel your situation is an emergency, please call 911 immediately. . Non-Emergent Contact Non-Emergency issues call your: Primary Care Provider . . "Provider Documentation" section prepared by Declan Rosenbaum. .
--- NOTE | 2017-10-22 15:36 | Discharge Summary ---
Discharge Summary Date of Service Oct 22, 2017. Discharge Summary Admission Date: Oct 21, 2017 at 21:45 Discharge Date: Oct 22, 2017 Discharge Disposition: Acute care facility Principal Diagnosis: Right Breast Cellulitis Immunizations: Have You Had Influenza Vaccine: No History of Tetanus Vaccine?: Unknown History of Pneumococcal: Unknown History of Hepatitis B Vaccine: Unknown Procedures: Work up in the ED Right breast U/S finding of 1) 4.9 x 0.5cm elongated pocket of fluid within the right breast at the 7 o'clock position. Sterility cannot be be assessed by ultrasound however the appearance is not strongly suggestive of an abscess. This may reflect a seroma, resolving hematoma or less likely abscess. 2) Right breast implant in place. She also had a CXR in the ED with No acute cardiopulmonary findings and mildly diminished lung volumes. Medication Reconciliation Continued Medications: Diazepam (Diazepam) 5 Mg Tab 5 MG PO Q6 PRN for PRN Oxycodone Ir (Roxicodone Ir) 5 Mg Tab 5 MG PO Q4 PRN for Pain Discharge Exam Review of Systems: Constitutional: No fever, No chills ENT: No nasal symptoms, No sore throat Respiratory: No cough, No shortness of breath, No dyspnea at rest, No hemoptysis Cardiovascular: No chest pain, No edema, No palpitations Abdomen: No pain, No nausea, No vomiting, No diarrhea, No GI bleeding Musculoskeletal: + swelling (right hand swelling from IV infiltration), No joint pain, No muscle pain, No calf pain Genitourinary - Female: No dysuria, No urinary frequency, No hematuria Neurologic: No weakness, No numbness/tingling Hematologic / Lymphatic: No abnormal bleeding/bruising, No swollen lymph nodes Physical Exam: General Appearance: + thin Eyes: normal inspection, EOMI, sclerae normal ENT: normal ENT inspection, hearing grossly normal Neck: supple, no JVD, trachea midline Respiratory/Chest: lungs clear, normal breath sounds, no respiratory distress, no accessory muscle use Cardiovascular: regular rate, rhythm, no gallop, no JVD, no murmur, normal peripheral pulses Abdomen / GI: normal bowel sounds, non tender, soft Extremities: no pedal edema, + swelling (mild left hyperthenar mild swelling secondary to IV infiltration) Neurologic/Psychiatric: alert, oriented x 3 Skin: + pertinent finding (right breast with moderate tenderness to lower outer quad and warm; no drainage; erythema not advancing) Hospital Course Transferring to Dr. Jose Pinon Plastic Surgery at [facility]. Please follow up with your Primary Care Provider after discharge from [facility]. To Admitting Physician: Garo Dickson is a 42 year old female with a past medical history of breast cancer and recent right breast mastectomy with implant at [facility] on October 10, who sought medical care at [facility] ED on 10/21/17 for complaints of worsening right sided breast pain for the past 2 days and a home measured fever max of 102 F on same day (10/21). She has not yet met with an oncologist to discuss chemotherapy. Work up in the ED was significant for a WBC of 25.64 and a Right breast U/S finding of 1) 4.9 x 0.5cm elongated pocket of fluid within the right breast at the 7 o'clock position. Sterility cannot be be assessed by ultrasound however the appearance is not strongly suggestive of an abscess. This may reflect a seroma, resolving hematoma or less likely abscess. 2) Right breast implant in place. She also had a CXR in the ED with No acute cardiopulmonary findings and mildly diminished lung volumes. The [facility] ED physician discussed care with [facility] who performed surgery. Recommendation by [facility] [employer] was for hospital IV antibiotics for 24 hours followed by PO; also if she did not respond to therapy to transfer to [facility]. Patient was placed on Vancomycin IV per pharmacokinetic monitoring and Zosyn IV. She received Toradol for pain. Hospital course also included following external markings of advanced edge of cellulitis for clinical improvement. The patient did not have any acute events overnight. She remained afebrile and was receiving Tylenol PO. Repeat labs in the morning was significant for a WBC 19.90 and a hemoglobin of 8.1, which was down from 10.2 night prior and thought to be dilutional. Patient did not complain of any hematuria, bleeding gums, black/bloody stools, dizziness/lightheadedness. She had no new chest pain or shortness of breath. However, she states that her symptoms of breast pain were not improving and were persistent. On exam, her right breast was examined and she was exquisitely tender on palpation to the lower outer quadrant; it also had warmth but surgical wound did not have any drainage and was intact. She stated that she had her surgical drain pulled earlier this week on Tuesday (2 days prior to being seen here in ED). The decision was made to transfer patient to [facility] for management under clinical team who performed procedure. Also, incase surgical intervention is needed during course of her illness, she would be in a more appropriate location at [facility] as to not delay treatment, again if needed. Transfer was discussed with patient and who agreed with treatment plan. Dr. Pinon was contacted for transfer by PGY1 Declan Rosenbaum D.O. [facility] was at capacity with no available inpatient beds. As to not have the patient wait in the [facility] ER, patient was to be placed on Wait List for a bed and will remain here at [facility] Oncology floor for continued IV antibiotics. Condition could also be re-evaluated if improves prior to bed placement. However, with patients current symptoms it is likely she will follow through with Transfer to [facility]. Blood cultures are still pending. Will continue IV antibiotics during transport to [facility]. Total Time Spent: Greater than 30 minutes This includes examination of the patient, discharge planning, medication reconciliation, and communication with other providers. Discharge Instructions Please refer to the electronic Patient Visit Report (Discharge Instructions) for additional information. Additional Copies To Rangel Paul M.D. ; [facility]
[2017-10-22] MEDS ORDERED: VANCOMYCIN TROUGH ONE (23:30)
[2017-10-23] MEDS: VANCOMYCIN IV 500 MG in SODIUM CHLORIDE 0.9% 250ML 250 ML IV SCH ×2 (00:31→08:29)
[2017-10-23] MEDS: ACETAMINOPHEN 325 MG TAB PO PRN ×2 (01:13→06:21)
[2017-10-23 03:58] VITALS: BP 96/66; PULSE 73; TEMP 36.5; O2SAT 100
[2017-10-23] MEDS: NSS + 20MEQ KCL 1000ML 1,000 ML IV SCH (06:11)
[2017-10-23] MEDS: PIPERACILL/TAZOBAC IV 3.375 GM in D5W 100ML IV SCH ×2 (06:12→14:23)
[2017-10-23 07:42] LABS: BASO % 0.2 %; BASO ABS # 0.02 K/uL (0-0.2); EOS % 0.8 %; EOS ABS # 0.09 K/uL (0-0.5); HEMATOCRIT 21.5 % (37-47); HEMOGLOBIN 7.2 g/dL (12.0-16.0); IG# 0.03 K/uL (0.00-0.02); LYMPH % 6.6 %; LYMPH ABS # 0.71 K/uL (1.2-3.4); MEAN CORPUSCULAR HEMOGLOBIN 32.1 pg (25-34); MEAN CORPUSCULAR HGB CONC 33.5 g/dl (32-36); MEAN PLATELET VOLUME 8.9 fL (7.4-10.4); MONO % 3.3 %; MONO ABS # 0.36 K/uL (0.11-0.59); NEUT % 88.8 %; NEUT ABS # 9.56 K/uL (1.4-6.5); PLATELET COUNT 270 K/uL (130-400); RED CELL DISTRIBUTION WIDTH CV 13.7 % (11.5-14.5); RED CELL DISTRIBUTION WIDTH SD 48.2 fL (36.4-46.3); WHITE BLOOD COUNT 10.77 K/uL (4.8-10.8)
[2017-10-23 08:10] VITALS: BP 113/71; PULSE 87; TEMP 36.7; O2SAT 99
[2017-10-23 08:11] LABS: CALCIUM 7.9 mg/dl (8.5-10.1); CREATININE 0.42 mg/dl (0.60-1.20); POTASSIUM 3.9 mmol/L (3.5-5.1)
--- NOTE | 2017-10-23 12:48 | ONCOLOGY CONSULTATION ---
DATE OF CONSULTATION: 10/23/2017 REASON FOR CONSULTATION: Newly diagnosed invasive ductal carcinoma of the right breast, admitted for possible wound infection. HISTORY OF PRESENT ILLNESS: Garo is a very pleasant 42-year-old female who was admitted to [facility] on October 21 with low-grade fever and surrounding erythema, recently performed mastectomy. The patient was diagnosed with invasive breast cancer and underwent mastectomy at the [facility] on October 10. The patient and her report a drain was placed postoperatively and remained for about 10 days. The patient followed up with her breast surgeon and drain was subsequently removed. It was days after drain removal, she developed a fever of 102 and noticed surrounding erythema within the mastectomy wound. She presented to [facility] and was started on broad-spectrum antimicrobials. Her WBC count was markedly elevated well over 25,000 with a predominance of neutrophils. She also presents with normocytic normochromic anemia; however, her platelet count is within normal limits. Cultures are pending at the time of dictation and Garo will be transferred to the [facility] tomorrow. According to the patient and her , her disease was multifocal and ER/LA positive as well as HER-2/elisabeth positive. I do not have official pathology to cooperate this information. The patient has been BRCA tested and found to be negative. She has no family history of breast cancer. PAST MEDICAL HISTORY: Her past medical problems include vaginal bleeding during and invasive breast cancer is reported above. PAST SURGICAL HISTORY: Right mastectomy. MEDICATIONS: Prior to admission, she was on oxycodone and diazepam p.r.n. ALLERGIES: No known drug allergies. SOCIAL HISTORY: The patient is , lives with her family. She is a current everyday smoker. Negative for alcohol. FAMILY HISTORY: Again, no known family history of breast cancer. REVIEW OF SYSTEMS: As per HPI most notably for a low-grade fever and inflamed right breast. She is not anorexic or losing weight. No skin rashes or lesions. No history of dermatosis. HEENT: She reports no lightheadedness, dizziness or headaches. No visual or hearing deficits. No sinus symptoms, sore throat or dysphagia. LYMPHATIC: No history of lymphoproliferative disease. CARDIAC: No history of coronary artery disease, no angina or palpitations. PULMONARY: Negative for COPD. No shortness of breath, dyspnea or orthopnea. No cough or hemoptysis. GASTROINTESTINAL: Negative for abdominal pain, nausea, vomiting, diarrhea or constipation, hematochezia or melena stools. GENITOURINARY: No hematuria, dysuria, urinary incontinence. PSYCHIATRIC: Negative for anxiety, depression or psychosis. ENDOCRINE: Negative for diabetes or thyroid disease. MUSCULOSKELETAL: No arthralgias or myalgias. No muscle weakness by history. NEUROLOGIC: Negative for seizure, stroke, or migraine headache. HEMATOLOGIC: Again, positive for neutrophilia and normocytic normochromic anemia. PHYSICAL EXAMINATION: GENERAL: She is a very pleasant, well-nourished 42-year-old female, in no acute distress. VITAL SIGNS: Temperature 36.7, pulse 87, respiratory rate is 16, blood pressure is 113/71. SKIN: Warm, dry, noncyanotic without petechiae, rash or ecchymosis. HEAD: Atraumatic, normocephalic. EYES: PERRLA, EOMI. Sclerae nonicteric. No conjunctival injection. Nares are patent without rhinorrhea or discharge. Throat clear. Tongue midline. Mucous membranes are moist. NECK: Supple without JVD or thyromegaly. LYMPHATIC: No cervical, supraclavicular, axillary or inguinal palpable nodes. HEART: Regular rate and rhythm. No clicks, rubs, murmurs or gallops. Examination limited to the right breast. There is surrounding erythema around the mastectomy wound. It seems to be healing satisfactory with no obvious drainage. LUNGS: Clear to auscultation bilaterally. ABDOMEN: Soft, nontender, nondistended without palpable hepatosplenomegaly. EXTREMITIES: No calf tenderness or swelling. No clubbing, cyanosis or edema. NEUROLOGICALLY: She is awake, alert and oriented x3. Cranial nerves are intact. LABORATORY DATA: WBC count has retreated 10,700, hemoglobin 7.2, platelet count 270,000. Sodium 141, potassium 3.9, chloride 110, carbon dioxide 23, creatinine 0.42, BUN 3. RADIOGRAPHIC DATA: Chest x-ray performed on the , again no acute cardiopulmonary findings. IMPRESSION: 1. Right-sided mastitis, status post mastectomy. 2. Multifocal invasive ductal carcinoma, ER/LA and HER-2/elisabeth positive, date of surgery 10/10. PLAN: I had the pleasure of visiting with Garo and her at bedside this morning. They were both very informative and providing past clinical history. The patient was diagnosed with multifocal breast cancer and underwent mastectomy at [facility] on 10/10. Drain was placed postoperatively and remained for about 10 days, shortly thereafter removal developed redness and fever. She was admitted to our facility with plans to transfer her down to [place] to allow her breast surgeon to follow her further. Garo was started on broad-spectrum antibiotics. Blood cultures are pending at the time of this dictation. Obviously, the patient will require adjuvant chemotherapy and will be arranged to follow with myself in about 2-3 weeks post-discharge. I did not get into specifics at bedside and will defer until she is seen in the office. I agree with management and wish her well with her care in the future. I look forward to seeing her in the office in a couple of weeks. Thank you very much for allowing me to participate in her care. If you have any questions or concerns, feel free to contact me at any time.
--- NOTE | 2017-10-23 13:50 | Pharmacy Progress Note ---
Pharmacy Abx Dose Short Note Date of Service Oct 23, 2017. Assessment & Plan Assessment 42 year old female receiving Vancomycin and Zosyn for treatment of cellulitis Day # 3 of antimicrobial therapy. Plan Item Value Date Time Vancomycin Level Trough 4.0 mcg/ml 10/22/17 2330 Vancomycin * Estimated P'kinetic parameters: Vd 0.7L/kg; Aiden ~0.104 hr-1; T1/2 ~6.7 hr; CrCl >120 * Trough level of 4.0 mcg/mL is subtherapeutic * Change to 750 mg IV every 8 hours * Goal trough level for cellulitis : ~15 mcg/mL * Trough level ordered for: 10/25/17 @2330 continue with Zosyn as previously ordered. Pharmacy will continue to follow and will adjust dose/frequency as necessary. Thank you.
[2017-10-23 14:40] LABS: HEMATOCRIT 24.4 % (37-47); HEMOGLOBIN 7.9 g/dL (12.0-16.0)
[2017-10-23 15:36] VITALS: BP 113/71; PULSE 87; TEMP 36.7; O2SAT 99
[2017-10-23] MEDS ORDERED: VANCOMYCIN IV 750 MG in SODIUM CHLORIDE 0.9% 250ML 250 ML IV SCH (16:00)
--- NOTE | 2017-10-23 16:19 | Family Medicine Progress Note ---
Progress Note Date of Service Oct 23, 2017. Subjective Pt evaluation today including: conversation w/ patient, conversation w/ family , physical exam, chart review, lab review, review of inpatient medication list Pain: Right breast pain, headache, and right flank pain Voiding: no voiding problems Patient was not transferred over night because insurance would not authorize transport. This issue was resolved today. Patient is being transferred to Dr. Pinon, [facility], Plastic Surgeon who performed mastectomy for continued treatment and care. Patient was seen and evaluated today. She states her right breast pain is unchanged. She also complains of frontal headache which resolved with Tylenol overnight. In addition, she complains of right flank pain. She does not have any new chest pain, nausea, vomiting, dark/bloody stools, abdominal pain, shortness of breath. Patients Hgb was 7.2 this morning but repeat prior to discharge was 7.8. Patient is on her period and with IV fluids, this is thought to be the cause. Patient is tolerating IV antibiotics well. All questions and concerns were addressed with patient and spouse. Constitutional: No fever, No chills Eyes: No worsening of vision ENT: No nasal symptoms, No sore throat Respiratory: No cough, No shortness of breath, No hemoptysis Cardiovascular: No chest pain, No edema, No palpitations Breast: + breast pain (right) Abdomen: No pain, No nausea, No vomiting, No diarrhea, No GI bleeding Musculoskeletal: No joint pain Female : No dysuria, No urinary frequency Neurologic: No weakness, No numbness/tingling Skin: No rash All Other Systems: Reviewed and Negative Objective Vital Signs Date Time Temp Pulse Resp B/P (MAP) Pulse Ox O2 Delivery O2 Flow Rate FiO2 10/23/17 15:36 36.7 87 16 99 Room Air 10/23/17 08:10 36.7 87 16 113/71 (85) 99 10/23/17 08:00 Room Air 10/23/17 03:58 36.5 73 16 96/66 (76) 100 Room Air 10/23/17 00:00 Room Air 10/22/17 23:18 37.7 97 16 93/59 (70) 97 Room Air Physical Exam General Appearance: + pertinent finding (appears uncomfortable) Eyes: EOMI, + pertinent finding (pallor) ENT: hearing grossly normal Neck: no JVD, trachea midline Respiratory/Chest: lungs clear, normal breath sounds, no respiratory distress, no accessory muscle use Cardiovascular: regular rate, rhythm, no edema, no gallop, no murmur Abdomen: normal bowel sounds, non tender, soft Extremities: no pedal edema, no calf tenderness Neurologic/Psychiatric: alert, normal mood/affect, oriented x 3 Skin: warm/dry, no rash Laboratory Results 10/23/17 07:05 Red Blood Count 2.24, Mean Corpuscular Volume 96.0, Mean Corpuscular Hemoglobin 32.1, Mean Corpuscular Hemoglobin Concent 33.5, Mean Platelet Volume 8.9, Neutrophils (%) (Auto) 88.8, Lymphocytes (%) (Auto) 6.6, Monocytes (%) (Auto) 3.3, Eosinophils (%) (Auto) 0.8, Basophils (%) (Auto) 0.2, Neutrophils # (Auto) 9.56, Lymphocytes # (Auto) 0.71, Monocytes # (Auto) 0.36, Eosinophils # (Auto) 0.09, Basophils # (Auto) 0.02 10/23/17 14:31 10/23/17 07:05 Test 10/22/17 23:30 10/23/17 07:05 Vancomycin Level Trough 4.0 mcg/ml (SEE COMMENT) White Blood Count 10.77 K/uL (4.8-10.8) Red Blood Count 2.24 M/uL (4.2-5.4) Hemoglobin 7.2 g/dL (12.0-16.0) Hematocrit 21.5 % (37-47) Mean Corpuscular Volume 96.0 fL (80-100) Mean Corpuscular Hemoglobin 32.1 pg (25-34) Mean Corpuscular Hemoglobin Concent 33.5 g/dl (32-36) Platelet Count 270 K/uL (130-400) Mean Platelet Volume 8.9 fL (7.4-10.4) Neutrophils (%) (Auto) 88.8 % Lymphocytes (%) (Auto) 6.6 % Monocytes (%) (Auto) 3.3 % Eosinophils (%) (Auto) 0.8 % Basophils (%) (Auto) 0.2 % Neutrophils # (Auto) 9.56 K/uL (1.4-6.5) Lymphocytes # (Auto) 0.71 K/uL (1.2-3.4) Monocytes # (Auto) 0.36 K/uL (0.11-0.59) Eosinophils # (Auto) 0.09 K/uL (0-0.5) Basophils # (Auto) 0.02 K/uL (0-0.2) RDW Standard Deviation 48.2 fL (36.4-46.3) RDW Coefficient of Variation 13.7 % (11.5-14.5) Immature Granulocyte % (Auto) 0.3 % Immature Granulocyte # (Auto) 0.03 K/uL (0.00-0.02) Red Blood Cell Morphology Unremarkable Anion Gap 8.0 mmol/L (3-11) Est Creatinine Clear Calc Drug Dose 127.9 ml/min Estimated GFR () 148.6 Estimated GFR (Non- 128.2 BUN/Creatinine Ratio 6.3 (10-20) Calcium Level 7.9 mg/dl (8.5-10.1) Magnesium Level 2.1 mg/dl (1.8-2.4) Assessment and Plan Cellulitis of right breast status post mastectomy for breast cancer, right breast pain, fever. - patient transfered to Dr. Pinon at [facility] who performed mastectomy. - patient was treated with IV antibiotics Zosyn and Vancomycin - pain controlled with PRN oxycodone here - US of right breast showed a 4.9cm x 0.5cm elongated pocket of fluid at the 7: 00 position - Blood cultures still pending on discharge Blood loss and Dilutional Anemia - Patients Hgb was 7.2 on morning of transfer but repeat prior to transfer to [facility] was 7.8. Patient is on her menstrual period and with IV fluids, this combination is thought to be the etiology.
[2017-10-24] MEDS ORDERED: VANCOMYCIN TROUGH ONE (23:30)
--- NOTE | 2017-10-27 08:05 | EDITING REQUIRED CODING QUERY ---
CODING QUERY To promote full compliance with coding requirements relating to patient care, provider participation is requested in all cases of miller wood flour uncertainty. Please assist us with the question(s) below: Coding Question(s): There is Blood Loss Anemia documented in the record. Please clarify below, in your clinical opinion, regarding Blood Loss Anemia. ( ) Likely Acute Blood Loss Anemia ( ) Likely Chronic Blood Loss Anemia Anemia not able to define, he also have folate deficiency, Physician's Response(s): Thank you Meghan Melissa Principal Diagnosis: "_that condition established after study, to be chiefly responsible for occasioning the admission of the patient to the hospital for care." Co-Existing Principal Diagnosis: "_when two or more diagnoses equally meet the criteria for principal diagnosis as determined by the circumstances of admission, diagnostic work up, and/or therapy provided, and the Alphabetic Index, Tabular List, or another coding guideline does not provide sequencing direction, any one of the diagnoses may be sequenced first." "When the physician has documented what appears to be a current diagnosis in the body of the record, but has not included the diagnosis in the final diagnostic statement, the physician should be asked whether the diagnosis should be added." ([facility] 2 QTR90. p3-4)
--- NOTE | 2017-10-27 08:09 | EDITING REQUIRED CODING QUERY ---
CODING QUERY To promote full compliance with coding requirements relating to patient care, provider participation is requested in all cases of solvent mixer uncertainty. Please assist us with the question(s) below: Coding Question(s): There is documentation that this may reflect a seroma, resolving hematoma or less likely abscess. The patient had recent mastectomy and breast implant surgery. Please clarify below, in your clinical opinion. ( x ) The possible seroma, resolving hematoma or less likely abscess are likely postoperative complications resulting from the recent surgery Possible acute blood lost anemia, she dose not have folate deficiency, ( ) The possible seroma, resolving hematoma or less likely abscess are Not likely postoperative complications resulting from the recent surgery. Physician's Response(s): Thank you Meghan Melissa Principal Diagnosis: "_that condition established after study, to be chiefly responsible for occasioning the admission of the patient to the hospital for care." Co-Existing Principal Diagnosis: "_when two or more diagnoses equally meet the criteria for principal diagnosis as determined by the circumstances of admission, diagnostic work up, and/or therapy provided, and the Alphabetic Index, Tabular List, or another coding guideline does not provide sequencing direction, any one of the diagnoses may be sequenced first." "When the physician has documented what appears to be a current diagnosis in the body of the record, but has not included the diagnosis in the final diagnostic statement, the physician should be asked whether the diagnosis should be added." (Source [facility] 2 QTR90. p3-4)
== END 2017-10-23 15:45 | disposition short-term general hospital (02) | DRG 920 ==
LOC: C.EDB 16:35 → C.4E 21:45 → ENRESERV 21:55
PROVIDERS: ADMIT Hospitalist; ATTEND Hospitalist
DX: N99.840 Postprocedural hematoma of a genitourinary system organ or structure following a genitourinary system procedure (principal); T81.4XXA Infection following a procedure, initial encounter; L03.313 Cellulitis of chest wall; D62 Acute posthemorrhagic anemia; Z68.1 Body mass index [BMI] 19.9 or less, adult; N99.842 Postprocedural seroma of a genitourinary system organ or structure following a genitourinary system procedure; N61.0 Mastitis without abscess; N61.1 Abscess of the breast and nipple; D64.89 Other specified anemias; R51 Headache; R63.6 Underweight; F17.200 Nicotine dependence, unspecified, uncomplicated; Z85.3 Personal history of malignant neoplasm of breast; Z90.11 Acquired absence of right breast and nipple; Z98.82 Breast implant status; Y83.8 Other surgical procedures as the cause of abnormal reaction of the patient, or of later complication, without mention of misadventure at the time of the procedure